=== PATIENT | female | born 2005 ===

== ENCOUNTER 2024-10-16 10:03 | Emergency (ER) | payer SELFPAY ==
--- NOTE | 2024-10-16 | ECG_ITS ---
Test Reason : RODRISA Blood Pressure : */* mmHG Vent. Rate : 67 BPM Atrial Rate : 67 BPM P-R Int : 132 ms QRS Dur : 82 ms QT Int : 402 ms P-R-T Axes : 75 78 51 degrees QTcB Int : 424 ms Sinus rhythm with Premature atrial complexes Nonspecific ST abnormality Abnormal ECG No previous ECGs available Referred By: Generic ED Physician Electronically Signed By: HUNG CLEMONS MD
[2024-10-16 10:21] VITALS: BP 129/96; PULSE 90; RESP 18; TEMP 37; O2SAT 95; BMI 19.4
[2024-10-16 10:54] LABS: MANUAL DIFF FLAG NO
[2024-10-16 11:02] LABS: Basophils Percent Auto 0.5 % (0-2); Eosinophils Percent Auto 0.3 % (0-4); Hematocrit 41.5 % (37.0-47.0); Hemoglobin 14.6 g/dl (12.0-16.0); Imm Gran Abs Auto 0.02 X10*3/uL (0.00-0.03); Imm Gran Pct Auto 0.2 % (0.0-0.4); Lymphocytes Absolute Auto 1.3 X10*3/uL (1.2-4.9); Mean Corpuscular HGB Conc 35.2 g/dl (31.0-35.0); Mean Corpuscular Hemoglobin 27.4 pg (27.0-33.0); Mean Platelet Volume 9.3 fL (9.4-12.3); Monocytes Absolute Auto 0.4 X10*3/uL (0.1-1.2); Monocytes Percent Auto 5.1 % (2-11); Neutrophils Absolute Auto 6.9 x10*3/uL (2.0-8.3); Neutrophils Percent Auto 78.9 % (45-73); Platelet Count 349 X10*3/uL (160-400); Red Blood Count 5.32 X10*6/uL (4.20-5.50); Red Cell Distribution Width 11.8 % (11.0-16.0); White Blood Count 8.7 X10*3/uL (4.8-10.8)
[2024-10-16] MEDS: Ondansetron ODT 4 MG TAB.RAPDIS SUBLINGUAL (11:06)
[2024-10-16 11:10] LABS: Alanine Aminotransferase 22 U/L (0-31); Albumin Level 4.9 g/dL (3.5-5.0); Alkaline Phosphatase 62 U/L (39-117); Anion Gap 16 (12-20); Aspartate Amino Transferase 20 U/L (5-31); Bilirubin Total 0.6 mg/dL (0.0-1.0); Blood Urea Nitrogen 19 mg/dL (9-16); Calcium 9.4 mg/dL (8.4-10.2); Carbon Dioxide 25 mmol/L (22-29); Chloride 101 mmol/L (96-108); Creatinine Clr Calc Pharmacy 88.2; Estimated Glomerular Filt Rate > 60; Glucose Random 97 mg/dL (60-115); Magnesium 2.4 mg/dL (1.6-2.6); Potassium 3.1 mmol/L (3.3-5.1); Sodium 139 mmol/L (135-145); Total Protein 8.3 g/dL (6.5-8.0)
--- NOTE | 2024-10-16 11:36 | ED_ITS ---
HPI - Nausea/Vomiting/Diarrhea General Chief complaint: Nausea/Vomiting/Diarrhea Stated complaint: Vomiting, not feeling well 1 week Time Seen by Provider: 10/16/24 11:01 Source: patient Mode of arrival: ambulatory Limitations: no limitations History of Present Illness ED Provider: Abdulkadir Mensah DO HPI Narrative: 18-year-old female with no significant past medical history or surgical history presents to the emergency department due to 1 week of intermittent nonbilious/ nonbloody vomiting as well as diarrhea that resolved in the setting of finishing her menstrual cycle. Patient denies fevers, severe abdominal pain, chest pain, difficulty breathing, urinary symptoms, vaginal bleeding or discharge or concern for sexually transmitted infection. She denies similar symptoms in the past. She states the symptoms started shortly after eating spicy food. She denies daily alcohol use. She denies pain radiating in the back but reports the pain is located over the epigastrium and a sharp, going up to the throat at times. She does not take any NSAID therapy. She is not currently have a primary care provider. Related Data Previous Rx's ?Medication ?Instructions ?Recorded ondansetron 4 mg disintegrating 4 mg PO Q8H PRN nausea and 10/16/24 tablet vomiting #10 tabs Allergies Allergy/AdvReac Type Severity Reaction Status Date / Time No Known Allergies Allergy Verified 10/16/24 10:25 Review of Systems 2 Review of Systems: Yes all other systems are reviewed and are negative PMFSH Social History Social History Smoked in Last 30 Days: No Advance Directives: No Advance Directives Information Provided: No Patient : No Physical Exam 2 Vital Signs: Vital Signs: Last Vital Signs Temp 98.6 F 10/16/24 10:21 Pulse 90 10/16/24 10:21 Resp 18 10/16/24 10:21 BP 129/96 H 10/16/24 10:21 Pulse Ox 95 10/16/24 10:21 BMI result Body Mass Index 19.4 Constitutional: Alert, oriented, speaking in full sentences HEENT: Normocephalic, atraumatic. Moist mucous membranes Eyes: PERRL, EOMI Neck: Supple, nontender Chest: No chest wall tenderness Respiratory: Lungs clear to auscultation, no increased work of breathing Cardio: Regular rate and rhythm, no murmur, 2+ radial and DP pulses symmetrically GI: Soft, nondistended, Mild tenderness of the epigastrium Back: Normal range of motion, nontender Skin: No rash, no lesions Neuro: Alert and oriented to person, place and time, moves all 4 extremities, no focal deficits Extremities: No swelling or tenderness, full range of motion Psych: Calm, alert and cooperative, appropriate behavior Medications Administered Discontinued Medications Generic Name Dose Route Start Last Admin Trade Name Reinierq PRN Reason Stop Dose Admin Al Hydroxide/Mg Hydroxide 30 ml 10/16/24 11:39 10/16/24 12:03 Magnesium Hydrox/Alum Hydrox 30 Ml Oral.Susp PO 10/16/24 11:40 30 ml ONCE ONE Administration Ondansetron HCl 4 mg 10/16/24 10:27 10/16/24 11:06 Ondansetron Odt 4 Mg Tab.Rapdis SUBLINGUAL 10/16/24 10:28 4 mg ONCE ONE Administration Medical Decision Making Medical Decision Making [facility] Narrative: well-appearing, pleasant young female presenting with 1 week of symptoms. Differential diagnosis includes gastroenteritis, and GERD. I do not suspect pancreatitis, cholecystitis, choledocholithiasis, a concerning level of dehydration ACS, or peptic ulcer disease. Patient's labs are largely unremarkable and her vitals are stable. His symptoms have been ongoing for 1 week. There is no indication for imaging today. no recent travel or antibiotic use and no suspicion for C diff or traveler's diarrhea. The patient improved with Zofran, tolerated p.o. and is also given Maalox. She also has had an antacid medication at home that is been improving her symptoms. we discuss if this continues to help and she may benefit from a proton pump inhibitor. She will follow up with a primary care provider and return with any worsening symptoms. Admission/Observation Consideration of admission/observation: Escalation of care including admission/observation considered Lab Data [facility] Lab Attestation statement: I reviewed the patient's lab results. 10/16/24 10:49 10/16/24 10:49 Labs: Lab Results 10/16/24 Range/Units 10:49 WBC 8.7 (4.8-10.8) X10*3/uL RBC 5.32 (4.20-5.50) X10*6/uL Hgb 14.6 (12.0-16.0) g/dl Hct 41.5 (37.0-47.0) % MCV 78.0 L (80.0-98.0) fL MCH 27.4 (27.0-33.0) pg MCHC 35.2 H (31.0-35.0) g/dl RDW 11.8 (11.0-16.0) % Plt Count 349 (160-400) X10*3/uL MPV 9.3 L (9.4-12.3) fL Immature Gran % (Auto) 0.2 (0.0-0.4) % Neut % (Auto) 78.9 H (45-73) % Lymph % (Auto) 15.0 L (20-40) % [place] % (Auto) 5.1 (2-11) % Eos % (Auto) 0.3 (0-4) % Baso % (Auto) 0.5 (0-2) % Lymph # (Auto) 1.3 (1.2-4.9) X10*3/uL [place] # (Auto) 0.4 (0.1-1.2) X10*3/uL Eos # (Auto) 0.0 (0.0-0.4) X10*3/uL Baso # (Auto) 0.0 (0.0-0.2) X10*3/uL Abs Immat Gran (auto) 0.02 (0.00-0.03) X10*3/uL Absolute Neuts (auto) 6.9 (2.0-8.3) x10*3/uL Absolute Nucleated RBC 0.000 (0.0-0.012) X10*3/uL Nucleated RBC % (auto) 0.0 (0.0-0.2) /100WBC Sodium 139 (135-145) mmol/L Potassium 3.1 L (3.3-5.1) mmol/L Chloride 101 (96-108) mmol/L Carbon Dioxide 25 (22-29) mmol/L Anion Gap 16 (12-20) BUN 19 H (9-16) mg/dL Creatinine 0.78 (0.5-1.4) mg/dL Estim Creat Clear Calc 88.2 Estimated GFR > 60 Random Glucose 97 (60-115) mg/dL Calcium 9.4 (8.4-10.2) mg/dL Magnesium 2.4 (1.6-2.6) mg/dL Total Bilirubin 0.6 (0.0-1.0) mg/dL AST 20 (5-31) U/L ALT 22 (0-31) U/L Alkaline Phosphatase 62 (39-117) U/L Total Protein 8.3 H (6.5-8.0) g/dL Albumin 4.9 (3.5-5.0) g/dL Beta HCG, Quant < 2 mIU/mL Independent Interpretation I performed an independent interpretation of an: EKG Interpretation: Normal sinus rhythm at 67 beats per minute, normal axis, unremarkable intervals, no diagnostic ST or T-wave abnormalities, no prior for comparison. Discharge Plan Discharge Clinical Impression: Nausea vomiting and diarrhea Patient Disposition: Home, Self-Care Instructions: Gastroenteritis (ED) Additional Instructions: You were evaluated for vomiting and diarrhea. At this time there does not appear to be an emergent cause of the symptoms and it is likely a virus or irritation of your stomach and intestines. It is important that you follow up with a primary care provider and possibly Gastroenterology because you may have gastric reflux. If you develop any bleeding when you throughout, this could be more dangerous such as a peptic ulcer. This can also be tested as an outpatient but if your symptoms continue to worsen or you develop fevers or worsening abdominal pain that you should return to the emergency department. Please take the prescribed Zofran as needed for severe nausea or vomiting every 8 hours. Continue to keep well hydrated at home. Follow a bland diet Until your symptoms resolve. Prescriptions: New ondansetron 4 mg tablet,disintegrating 4 mg PO Q8H PRN (Reason: nausea and vomiting) Qty: 10 0RF Print Language: [place]
[2024-10-16] MEDS: Magnesium Hydrox/Alum Hydrox 30 ML ORAL.SUSP PO (12:03)
[2024-10-16 12:30] LABS: HCG Quantitative < 2 mIU/mL
[2024-10-16 12:36] VITALS: BP 106/67; PULSE 82; RESP 18; TEMP 36.8; O2SAT 100
[2024-10-16 12:53] VITALS: BP 106/67; PULSE 82; RESP 18; TEMP 36.8; O2SAT 100
== END 2024-10-16 12:53 | disposition home or self-care (01) ==
PROVIDERS: Emergency Provider Emergency Medicine
DX: R11.2 Nausea with vomiting, unspecified (principal); R19.7 Diarrhea, unspecified; R94.31 Abnormal electrocardiogram [ECG] [EKG]
CPT/HCPCS: 36415; 80053; 83735; 84702; 85025; 93005; 99283; 99285

== ENCOUNTER → 2024-10-16 10:39 | Outpatient (BNV) | payer SELFPAY | PROVIDERS: Emergency Provider Emergency Medicine; Visit Provider Internal Medicine Cardiovascular Disease | DX: I49.1 Atrial premature depolarization (principal) | CPT/HCPCS: 93010 ==